=== PATIENT | male | born 1995 | race Caucasian/White ===

== ENCOUNTER 2018-06-04 16:11 | Emergency (ER) | payer MEDICAID ==
[~2018-06-04] VITALS: Ht 188 cm; Wt 104.3 kg
[~2018-06-04 16:11] MED LIST: AMOX500 PO; AZIT250 PO; CEPH250A PO; CEPH250SUA PO; CODACE30 PO; Norco 10-325 T1 EACH PO; OXYB5; RXCODACET PO; Zofran Odt4 MG SL
== END 2018-06-04 17:33 | disposition other institution (70) ==
LOC: ER 16:11
DX: T18.128A Food in esophagus causing other injury, initial encounter (principal)
CPT/HCPCS: J1610; J2250; J2405; J7120

== ENCOUNTER → 2021-11-03 | Outpatient (CLI) | payer OTHER | END | disposition home or self-care (01) | LOC: LAB 08:11 → LAB SHORT 08:11 | DX: J02.9 Acute pharyngitis, unspecified (principal) | CPT/HCPCS: 87081 ==

== ENCOUNTER 2025-07-14 16:47 | Emergency (ER) | payer OTHER ==
[2025-07-14] VITALS (8 sets, daily range): BP systolic 101–124; BP diastolic 67–81
[~2025-07-14] VITALS: Ht 188 cm; Wt 99.8 kg
[2025-07-14] MEDS ORDERED: Ondansetron HCl 2 MG / ML 2ML Vial IM ONE (17:05)
[2025-07-14] MEDS ORDERED: Glucagon 1 MG/KIT VIAL IM ONE (17:05)
[2025-07-14] MEDS ORDERED: Glucagon, Human Recombinant 1 MG/Vial IM ONE (17:15)
[2025-07-14] MEDS ORDERED: Glucagon, Human Recombinant 1 MG/Vial IV ONE (18:05)
[2025-07-14] MEDS ORDERED: Glucagon 1 MG/KIT VIAL IV ONE (18:05)
[2025-07-14] MEDS ORDERED: Ondansetron HCl 2 MG / ML 2ML Vial IV ONE (18:05)
[2025-07-14] MEDS ORDERED: Metoclopramide HCl 5MG / ML 2ML Vial IV ONE (19:25)
[2025-07-14] MEDS ORDERED: DiphenhydrAMINE HCl 50 MG/ML 1ML Vial IV ONE ×2 (19:25→20:05)
[2025-07-14] MEDS ORDERED: Ketorolac Tromethamine 15mg Vial IV ONE (19:55)
[2025-07-14 21:13] LABS: BASOPHILS ABSOLUTE AUTO 0.06 K/mm3 (0.00-0.23); BASOPHILS PERCENT AUTO 1 % (0-2); EOSINOPHILS ABSOLUTE AUTO 0.29 K/mm3 (0.00-0.68); EOSINOPHILS PERCENT AUTO 3 % (0-6); Hematocrit 42.2 % (37.0-53.0); Hemoglobin 14.5 g/dL (13.5-17.5); IMMATURE GRAN ABSOLUTE AUTO 0.02 K/mm3 (0.00-0.10); IMMATURE GRAN PERCENT AUTO 0 % (0-1); LYMPHOCYTES ABSOLUTE AUTO 1.73 K/mm3 (0.84-5.20); LYMPHOCYTES PERCENT AUTO 16 % (21-46); MONOCYTES ABSOLUTE AUTO 0.73 K/mm3 (0.16-1.47); MONOCYTES PERCENT AUTO 7 % (4-13); Mean Corpuscular HGB Conc 34.4 g/dL (31.5-36.5); Mean Corpuscular Volume 85 fL (80-100); NEUTROPHILS ABSOLUTE AUTO 7.85 K/mm3 (1.96-9.15); NEUTROPHILS PERCENT AUTO 74 % (41-73); NRBC ABSOLUTE 0.00 K/mm3 (0.00-0.02); NRBC Auto 0.0 /100 WBC (0.0-0.2); Platelet Count 235 K/mm3 (150-400); RDW Coefficient Variation 12.5 % (11.7-14.2); RDW Standard Deviation 38.5 fL (35.1-46.3)
[2025-07-14 22:14] LABS: Alanine Aminotransfer (ALT/SGP 30.0 U/L (12-78); Albumin, Blood 4.3 g/dL (3.4-5.0); Albumin/Globulin Ratio 1.4 (0.8-1.8); Anion Gap 11.0 mmol/L (3-11); Aspartate Aminotrans (AST/SGOT 19.0 U/L (12-37); Bilirubin, Total 0.6 mg/dL (0.1-1.0); Blood Urea Nitrogen 17.0 mg/dL (8-24); CO2, Blood 26.0 mmol/L (21-32); Calcium, Blood 8.9 mg/dL (8.5-10.1); Chloride, Blood 107.0 mmol/L (98-108); Creatinine, Blood 1.1 mg/dL (0.60-1.20); Globulin, Blood 3.0 g/dL (2.2-4.0); Glucose, Blood 102.0 mg/dL (70-99); Potassium, Blood 3.4 mmol/L (3.5-5.5); Sodium, Blood 141.0 mmol/L (136-145); Total Protein, Blood 7.3 g/dL (6.4-8.2)
--- NOTE | 2025-07-14 22:18 | NUR ---
INTO SDS. VIA WHEELCHAIR. HISTORY AND ALLERGIES REVIEWED. LUNGS CLEAR. PT REPORTS MILD SOB. SATS>90% ON RA. PT DENIES NAUSEA AT THIS TIME, BUT REPORTS 7/10 HEADACHE. NPO STATUS CONFIRMED. PT MOTHER AT BEDSIDE.
--- NOTE | 2025-07-14 22:18 | NUR ---
PIV #20 TO RIGHT AC C/D/I.
[2025-07-14] MEDS ORDERED: EpiNEPhrine 1 MG/1 ML 1ML Vial ONE (22:28)
[2025-07-14] MEDS ORDERED: Metoclopramide HCl 5MG / ML 2ML Vial ONE (22:52)
[2025-07-14] MEDS ORDERED: Ondansetron HCl 2 MG / ML 2ML Vial ONE (22:52)
[2025-07-14] MEDS ORDERED: Dexamethasone Sod Phos 10 MG/ML 1ML VIAL ONE (22:52)
[2025-07-14] MEDS ORDERED: Ketorolac Tromethamine 30mg Vial ONE (22:54)
[2025-07-14] MEDS ORDERED: Ondansetron HCl 2 MG / ML 2ML Vial IV PRN (23:05)
[2025-07-14] MEDS ORDERED: HYDROmorphone HCl/Pf 1MG SYR IV PRN ×2 (23:05)
[2025-07-14] MEDS ORDERED: FentaNYL Citrate 50 MCG/ML 2 ML Injection IV PRN ×2 (23:05)
[2025-07-14] MEDS ORDERED: Albuterol 2.5 MG/3 ML VIAL INH PRN (23:05)
--- NOTE | 2025-07-14 23:28 | NUR ---
07/14/25 8980 Analisa Kolb 2245-INTO OR 3 FOR EGD/FOREIGN BODY REMOVAL. JASON SANDERS PROVIDING MAC-SEE ANESTHESIA RECORD.
--- NOTE | 2025-07-14 23:58 | NUR ---
REVIEWED DISCHARGE INSTRUCTIONS WITH PT AND HIS [id number]. BOTH VERBALIZE UNDERSTANDING. PT DISCHARGED TO HOME, OUT VIA WHEELCHAIR WITH DISCHARGE INSTRUCTIONS AND BELONGINGS ON HAND.
== END 2025-07-14 22:00 ==
LOC: ER 16:47
PROVIDERS: Student in an Organized Health Care Education/Training Program
DX: T18.128A Food in esophagus causing other injury, initial encounter (principal); W44.F3XA Food entering into or through a natural orifice, initial encounter
CPT/HCPCS: 80053; 85025; 88305; 96374-59; 96375-59; 99284-25; J0169; J1100; J1200; J1610; J1885; J2405; J2704; J2765; J7120